=== PATIENT | female | born 1965 | race Native Hawaiian/Other Pacific Islander ===

== ENCOUNTER 2021-12-18 08:43 | Outpatient (CLI) | payer BC | END 2021-12-18 19:08 | disposition home or self-care (01) | LOC: RAD 08:43 | PROVIDERS: ATTEND Internal Medicine | DX: M79.605 Pain in left leg (principal); M79.604 Pain in right leg; R73.03 Prediabetes; R42 Dizziness and giddiness; R59.9 Enlarged lymph nodes, unspecified; R23.2 Flushing; G47.10 Hypersomnia, unspecified; I73.9 Peripheral vascular disease, unspecified; N95.8 Other specified menopausal and perimenopausal disorders; E55.9 Vitamin D deficiency, unspecified ==

== ENCOUNTER 2022-01-03 08:18 | Outpatient (CLI) | payer BC | END 2022-01-03 20:24 | disposition home or self-care (01) | LOC: US 08:18 | PROVIDERS: ATTEND Internal Medicine | DX: R94.5 Abnormal results of liver function studies (principal) ==

== ENCOUNTER 2023-05-21 11:01 | Outpatient (CLI) | payer BC | END 2023-05-21 19:28 | disposition home or self-care (01) | LOC: LABW 11:01 | PROVIDERS: ATTEND Nurse Practitioner | DX: M13.0 Polyarthritis, unspecified (principal); D89.89 Other specified disorders involving the immune mechanism, not elsewhere classified; E34.9 Endocrine disorder, unspecified; N95.1 Menopausal and female climacteric states; R68.82 Decreased libido; E55.9 Vitamin D deficiency, unspecified; Z79.899 Other long term (current) drug therapy; Z13.89 Encounter for screening for other disorder | CPT/HCPCS: 36415; 82306; 82607; 82627; 82670; 83525; 83527; 83789; 84144; 84270; 84402; 84403; 84439; 84443; 84481; 86376; 86800 ==